=== PATIENT | female | born 1970 | race Caucasian/White ===

== ENCOUNTER 2024-06-19 09:14 | Outpatient (CLI) | payer OTHER, SELFPAY ==
--- NOTE | ~2024-06-19 | CT_ITS ---
EXAMINATION: CT lung screening DATE: 06/19/2024 09:31 INDICATION: Hx nicotine dependence TECHNIQUE: Computed tomography (CT) of the chest was performed without intravenous contrast. Addition al 3D reconstructions utilizing coronal maximum intensity projection (MIP) were performed. Automated exposure control and iterative reconstruction technique were employed. The dose-length product was 16 4.83 mGy-cm. COMPARISON: None FINDINGS: There are few scattered small bilateral pulmonary nodules, the largest in the right lower lobe measur ing 7 x 4 mm and the remainder all measuring <4 mm. No pneumonia, pulmonary edema, pleural effusion o r pneumothorax. Heart size normal. Atherosclerotic coronary artery calcifications. No pericardial eff usion. Thoracic aorta is normal in caliber. No pathologically enlarged thoracic lymphadenopathy. Mode rate lower thoracic predominant spondylosis. IMPRESSION: 1. . Lung-RADS category 2: Benign appearance or behavior. Continue annual screening with noncontrast low-dose chest CT in 12 months. Reviewed, dictated and finalized at location A. [facility] [employer] [facility] IMPRESSION: 1. . Lung-RADS category 2: Benign appearance or behavior. Continue annual scree royal with noncontrast low-dose chest CT in 12 months.
== END 2024-06-19 09:15 | disposition home or self-care (01) ==
LOC: GOSHIMG 09:15
PROVIDERS: PCP Internal Medicine; Visit Provider Internal Medicine
DX: Z12.2 Encounter for screening for malignant neoplasm of respiratory organs (principal); F17.210 Nicotine dependence, cigarettes, uncomplicated
CPT/HCPCS: 71271